=== PATIENT | female | born 1985 | race Two or more races ===

== ENCOUNTER 2018-01-25 06:15 | Inpatient (IN) | payer OTHER ==
[~2018-01-25] VITALS: Ht 165.1 cm; Wt 68.0 kg
[2018-01-25] MEDS ORDERED: PRENATAL TABLE1 EAC2 PO (06:29)
[2018-01-27] MEDS ORDERED: DOCUSATE SODIU100 MG PO (13:50)
== END 2018-01-27 14:14 | DRG 775 ==
LOC: OBS/DEL 06:15 → LDR 07:54 → SURG-SUITE 15:53
PROC: 0DQP0ZZ Repair Rectum, Open Approach (ICD-10-PCS; principal; 2018-01-25)
PROC: 10E0XZZ Delivery of Products of Conception, External Approach (ICD-10-PCS; 2018-01-25)
PROC: 4A1HXCZ Monitoring of Products of Conception, Cardiac Rate, External Approach (ICD-10-PCS; 2018-01-25)
PROC: 4A033R1 Measurement of Arterial Saturation, Peripheral, Percutaneous Approach (ICD-10-PCS; 2018-01-25)
DX: O70.3 Fourth degree perineal laceration during delivery (principal); Z37.0 Single live birth; Z3A.39 39 weeks gestation of pregnancy

== ENCOUNTER 2019-07-07 10:27 | Outpatient (CLI) | payer OTHER ==
[~2019-07-07 10:27] MED LIST: DOCUSATE SODIU100 MG PO; PRENATAL TABLE1 EAC2 PO
== END 2019-07-07 15:52 | disposition home or self-care (01) ==
LOC: SONOGRAMA 10:27
DX: R22.1 Localized swelling, mass and lump, neck (principal)

== ENCOUNTER → 2020-11-23 | Outpatient (CLI) | payer OTHER | END | disposition home or self-care (01) | LOC: PRENATAL 08:00 | PROVIDERS: ATTEND Obstetrics & Gynecology Maternal & Fetal Medicine | DX: O35.0XX1 Maternal care for (suspected) central nervous system malformation in fetus, fetus 1 (principal); O35.3XX1 Maternal care for (suspected) damage to fetus from viral disease in mother, fetus 1; O98.512 Other viral diseases complicating pregnancy, second trimester; O99.891 Other specified diseases and conditions complicating pregnancy; O44.02 Complete placenta previa NOS or without hemorrhage, second trimester; Z36.89 Encounter for other specified antenatal screening; Z3A.20 20 weeks gestation of pregnancy ==